=== PATIENT | female | born 1980 | race Caucasian/White ===

== ENCOUNTER 2019-03-17 22:29 | Emergency (ER) | payer MEDICARE, MEDICAID ==
[~2019-03-17] VITALS: Ht 172.7 cm; Wt 99.8 kg
[2019-03-18 00:13] LABS: BASOPHILS % (AUTO) 0 % (0-10); EOSINOPHILS # (AUTO) 0.2 10^3/uL (0.0-0.3); EOSINOPHILS % (AUTO) 3 % (0-10); HEMATOCRIT 43 % (35-52); HEMOGLOBIN 14.3 G/DL (11.5-16.0); LYMPHOCYTES # (AUTO) 2.4 X 10^3 (1.0-4.0); LYMPHOCYTES % (AUTO) 27 % (12-44); MEAN CORPUSCULAR HEMOGLOBIN 31 PG (25-34); MEAN CORPUSCULAR HGB CONC 34 G/DL (32-36); MEAN CORPUSCULAR VOLUME 92 FL (80-99); MONOCYTES # (AUTO) 0.7 X 10^3 (0.0-1.0); MONOCYTES % (AUTO) 8 % (0-12); NEUTROPHILS # (AUTO) 5.6 X 10^3 (1.8-7.8); NEUTROPHILS % (AUTO) 63 % (42-75); PLATELET COUNT 224 10^3/uL (130-400); RED CELL DISTRIBUTION WIDTH 13.9 % (10.0-14.5); WHITE BLOOD COUNT 8.9 10^3/uL (4.3-11.0)
[2019-03-18 00:33] LABS: BILIRUBIN,TOTAL 0.2 MG/DL (0.1-1.0); CALCIUM 9.4 MG/DL (8.5-10.1); CREATININE SERUM 1.05 MG/DL (0.60-1.30); POTASSIUM 3.8 MMOL/L (3.6-5.0); TOTAL PROTEIN 6.8 GM/DL (6.4-8.2)
[2019-03-18] MEDS ORDERED: RX-TRAMADOL 50 MG (ULTRAM) TAB PPK#4 PO STA (01:03)
--- NOTE | 2019-03-18 01:03 | ED General ---
General Chief Complaint: General Problems/Pain Stated Complaint: GALLBLADDER SURGERY 7 MO AGO/INCISION INFECTION Source of Information: Patient Exam Limitations: No Limitations History of Present Illness Date Seen by Provider: March 18, 2019 Time Seen by Provider: 23:35 Initial Comments This 39-year-old woman presents to the emergency room with postoperative pain around her umbilical incision after having a cholecystectomy February 08. Her surgeon is Dr. Chong at [facility]. She reports being seen in his clinic, her nurse practitioner's office, and in the ER at [facility] since having surgery due to pain, erythema, and drainage around the umbilical site. She is presently on her second or third day of Bactrim as well as Bactroban ointment. reports a day or 2 ago the incision drained purulent material. Patient is afebrile. She states she has been on multiple rounds of antibiotics since her surgery. 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 Allergies and Home Medications Allergies Coded Allergies: No Known Drug Allergies (Unverified , 03/17/19) Home Medications Tramadol HCl 50 Mg Tablet, 50 MG PO Q6H PRN for PAIN-MODERATE TO SEVERE Prescribed by: JASON ULRICH on 03/18/19 0106 Patient Home Medication List Home Medication List Reviewed: Yes Review of Systems Review of Systems Constitutional: no symptoms reported EENTM: no symptoms reported Respiratory: no symptoms reported Cardiovascular: no symptoms reported Gastrointestinal: see HPI Genitourinary: no symptoms reported Musculoskeletal: no symptoms reported Skin: see HPI Psychiatric/Neurological: No Symptoms Reported Hematologic/Lymphatic: No Symptoms Reported Immunological/Allergic: no symptoms reported Past Qdkevkv-Aristx-Wqbmjw Hx Past Med/Social Hx: Reviewed and Corrections made Patient Social History Recent Foreign Travel: No Contact w/Someone Who Travel: No Past Medical History Surgeries: Yes Abdominal (D&C), Gallbladder, Hysterectomy Respiratory: Yes Cardiac: No Neurological: No : No Reproductive Disorders: No Gastrointestinal: No Musculoskeletal: Yes (Upossdb-Ibfxtpysr-Csqdv Syndrome) Endocrine: No HEENT: No Cancer: No Psychosocial: Yes PTSD, Personality Disorder Integumentary: Yes (Kyzwdqt-Qsxwosjid-Fowaw Syndrome) Blood Disorders: Yes (Qvvjlqt-Ihmphwehw-Bwupu Syndrome) Physical Exam-Suspected Sepsis Physical Exam Vital Signs Vital Signs - First Documented 03/17/19 03/18/19 23:06 01:11 Temp 98.4 Pulse 98 Resp 20 B/P (MAP) 120/74 (89) Pulse Ox 93 Capillary Refill : Height, Weight, BMI Height: '" Weight: lbs. oz. kg; BMI Method: General Appearance: No Apparent Distress, WD/WN HEENT: PERRL/EOMI, Normal ENT Inspection Neck: Normal Inspection Respiratory: Lungs Clear, Normal Breath Sounds, No Accessory Muscle Use Cardiovascular: Regular Rate, Rhythm, No Edema, No Murmur Gastrointestinal: Soft; No Distended; Other (periumbilical tenderness) Extremity: Normal Capillary Refill, Normal Inspection Neurologic/Psychiatric: Alert, Oriented x3, No Motor/Sensory Deficits, Normal Mood/Affect, stationary fireman II-XII Norm as Tested Skin: warm/dry, other (blanching erythema extending about 3 cm beyond the umbilical incision. Scabbing over the incision noted. No active drainage. No overt abscess.) Progress/Results/Core Measures Suspected Sepsis SIRS Temperature: Pulse: Respiratory Rate: Laboratory Tests 03/18/19 00:06: White Blood Count 8.9 Blood Pressure / Mean: Laboratory Tests 03/18/19 00:06: Creatinine 1.05, Platelet Count 224, Total Bilirubin 0.2 Results/Orders Lab Results My Orders Vital Signs/I&O Capillary Refill : Progress Note : Progress Note Labs were relatively unremarkable. Patient is presently on appropriate antibiotics. She displays no signs of sepsis. She was given a prescription for Ultram for pain. She was advised to follow-up with her surgeon and inquire about imaging such as ultrasound for further evaluation. Departure Impression Primary Impression: Postoperative pain Disposition: 01 HOME, SELF-CARE Condition: Improved Departure-Patient Inst. Decision time for Depature: 01:03 Referrals: NO,LOCAL PHYSICIAN (PCP/Family) Primary Care Physician Patient Instructions: Postoperative Pain (DC) Add. Discharge Instructions: You may use Tylenol (acetaminophen) up to 650 mg every 6 hours as needed for pain as well as the Ultram (tramadol) as prescribed. Return to care if your symptoms are worsening or if you develop new symptoms such as fevers over 100. Complete antibiotics as previously prescribed. Call your surgeon's office on Wednesday. If you're not improving, discuss the option of obtaining an ultrasound study to assess for possible abscess. Follow-up in your surgeon's office as soon as possible. All discharge instructions reviewed with patient and/or family. Voiced understanding. Scripts Tramadol HCl (Ultram) 50 Mg Tablet 50 MG PO Q6H PRN for PAIN-MODERATE TO SEVERE, #10 TAB Prov: JASON VENEGAS MD 03/18/19 JASON VENEGAS MD March 18, 2019 01:03
[2019-03-18] MEDS ORDERED: TRAM-42 PO (01:06)
[2019-03-18 01:11] VITALS: BP 97/67
== END 2019-03-18 01:12 | disposition home or self-care (01) ==
LOC: ER 22:32
DX: G89.18 Other acute postprocedural pain (principal); R10.33 Periumbilical pain; Q87.2 Congenital malformation syndromes predominantly involving limbs; F43.10 Post-traumatic stress disorder, unspecified; F60.0 Paranoid personality disorder; Z90.49 Acquired absence of other specified parts of digestive tract; Z98.890 Other specified postprocedural states
CPT/HCPCS: 36415; 80053; 85025; 86141

== ENCOUNTER 2021-06-05 15:58 | Emergency (ER) | payer MEDICARE, MEDICAID ==
[~2021-06-05] VITALS: Ht 172.7 cm; Wt 98.0 kg
[~2021-06-05 15:58] MED LIST: TRAM-42 PO
[2021-06-05 16:30] LABS: BILIRUBIN,URINE NEGATIVE (NEGATIVE); CLARITY,URINE SL CLOUDY; COLOR,URINE YELLOW; GLUCOSE, URINE (UA) NEGATIVE (NEGATIVE); KETONES,URINE NEGATIVE (NEGATIVE); LEUKOCYTE ESTERASE ,URINE NEGATIVE (NEGATIVE); NITRITE,URINE NEGATIVE (NEGATIVE); PH,URINE 5.5 (5-9); PROTEIN,URINE NEGATIVE (NEGATIVE)
[2021-06-05] MEDS ORDERED: KETOROLAC 60 MG/2 ML VIAL IM ONE (16:30)
[2021-06-05 16:46] LABS: AMORPHOUS SEDIMENT,UR RARE AMOR URATES /LPF; BACTERIA,URINE TRACE /HPF; HCG,QUALITATIVE URINE NEGATIVE (NEGATIVE); WBC,URINE 0-2 /HPF
--- NOTE | 2021-06-05 16:46 | ED Back Pain ---
General Chief Complaint: Back Problems Stated Complaint: BACK PAIN Nursing Triage Note: Patient ambulatory into ER with complaint of back pain x3 weeks. Pt denies injury. Pain at a 10/10. Source of Information: Patient Exam Limitations: No Limitations History of Present Illness Date Seen by Provider: Jun 05, 2021 Time Seen by Provider: 16:44 Initial Comments ER with right-sided back pain for 3 weeks. No known injury. Pain is 10 out of 10 despite her tramadol, Flexeril, gabapentin. No urinary symptoms. No fevers no chills. No loss of bowel or bladder control. No loss of sensation of her genitals. No history of cancer. Location: Lumbar Spine Timing/Duration: Other (3 weeks) Severity: Moderate Associated Symptoms: denies symptoms Allergies and Home Medications Allergies Coded Allergies: No Known Drug Allergies (Unverified , 03/17/19) Home Medications Tramadol HCl 50 Mg Tablet, 50 MG PO Q6H PRN for PAIN-MODERATE TO SEVERE Prescribed by: JASON ULRICH on 03/18/19 0106 Patient Home Medication List Home Medication List Reviewed: Yes Review of Systems Constitutional: see HPI EENTM: see HPI Respiratory: no symptoms reported Cardiovascular: no symptoms reported Genitourinary: no symptoms reported Musculoskeletal: see HPI, back pain Skin: no symptoms reported Psychiatric/Neurological: No Symptoms Reported Past Uewklrd-Vyjxit-Ejeoem Hx Patient Social History Tobacco Use?: Yes Tobacco type used: Cigarettes Use of E-Cig and/or Vaping dev: No Substance use?: Yes Substance type: Marijuana Alcohol Use?: No Pt feels they are or have been: No Immunizations Up To Date Influenza Vaccine Up-to-Date: No; Not Current Seasonal Allergies Seasonal Allergies: No Past Medical History Surgeries: Yes Abdominal, Gallbladder, Hysterectomy Respiratory: Yes COPD Cardiac: No High Cholesterol Neurological: No Reproductive Disorders: No Genitourinary: No Gastrointestinal: No Gastroesophageal Reflux Musculoskeletal: Yes (Ythzmvc-Cprcfsmha-Jwmei Syndrome) Spasms Endocrine: No Hypothyroidsim HEENT: No Cancer: No Psychosocial: Yes PTSD, Personality Disorder Integumentary: Yes (Gtiaaiq-Alnmyrfbk-Ipmun Syndrome) Blood Disorders: Yes (Edbtfft-Sdxohkrpn-Nyghw Syndrome) Physical Exam Vital Signs Vital Signs - First Documented 06/05/21 16:21 Temp 37.3 Pulse 83 Resp 18 B/P (MAP) 106/71 (83) Pulse Ox 98 O2 Delivery Room Air Capillary Refill : Less Than 3 Seconds Height, Weight, BMI Height: 5'8.00" Weight: 220lbs. oz. 99.169399sb; 32.00 BMI Method:Stated General Appearance: No Apparent Distress, WD/WN, Other ([place] appearing) Neck: Full Range of Motion, Normal Inspection Respiratory: No Accessory Muscle Use, No Respiratory Distress Gastrointestinal: Normal Bowel Sounds, Non Tender, Soft Extremity: Normal Capillary Refill, Normal Inspection Neurologic/Psychiatric: Alert, Oriented x3 Skin: Normal Color, Warm/Dry Progress/Results/Core Measures Results/Orders Lab Results Laboratory Tests Test 06/05/21 16:27 Range/Units Urine Color YELLOW Urine Clarity SL CLOUDY Urine pH 5.5 5-9 Urine Specific [place] 1.025 H 1.016-1.022 Urine Protein NEGATIVE NEGATIVE Urine Glucose (UA) NEGATIVE NEGATIVE Urine Ketones NEGATIVE NEGATIVE Urine Nitrite NEGATIVE NEGATIVE Urine Bilirubin NEGATIVE NEGATIVE Urine Urobilinogen 0.2 < = 1.0 MG/DL Urine Leukocyte Esterase NEGATIVE NEGATIVE Urine RBC (Auto) NEGATIVE NEGATIVE Urine RBC NONE /HPF Urine WBC 0-2 /HPF Urine Crystals PRESENT H /LPF Urine Amorphous Sediment RARE SHANTA URATES H /LPF Urine Bacteria TRACE /HPF Urine Casts NONE /LPF Urine Mucus NEGATIVE /LPF Urine Culture Indicated NO Urine Test NEGATIVE NEGATIVE Urine Opiates Screen NEGATIVE NEGATIVE Urine Oxycodone Screen NEGATIVE NEGATIVE Urine Methadone Screen NEGATIVE NEGATIVE Urine Propoxyphene Screen NEGATIVE NEGATIVE Urine Barbiturates Screen NEGATIVE NEGATIVE Ur Tricyclic Antidepressants Screen NEGATIVE NEGATIVE Urine Phencyclidine Screen NEGATIVE NEGATIVE Urine Amphetamines Screen NEGATIVE NEGATIVE Urine Methamphetamines Screen NEGATIVE NEGATIVE Urine Benzodiazepines Screen POSITIVE H NEGATIVE Urine Cocaine Screen NEGATIVE NEGATIVE Urine Cannabinoids Screen POSITIVE H NEGATIVE My Orders Orders - GUIDO SCHRADER APRN Ua Culture If Indicated (06/05/21 16:22) Drug Screen Stat (Urine) (06/05/21 16:22) Hcg,Qualitative Urine (06/05/21 16:22) Ketorolac Injection (Toradol Injection) (06/05/21 16:30) Medications Given in ED Current Medications Medications Dose Ordered Sig/Isrrael Route Start Time Stop Time Status Last Admin Dose Admin Ketorolac Tromethamine 60 mg ONCE ONCE IM 06/05/21 16:30 06/05/21 16:31 DC 8/5/21 16:38 60 MG Vital Signs/I&O 06/05/21 16:21 Temp 37.3 Pulse 83 Resp 18 B/P (MAP) 106/71 (83) Pulse Ox 98 O2 Delivery Room Air Blood Pressure Mean: 83 Departure Impression Primary Impression: Acute low back pain Disposition: HOME, SELF-CARE Condition: Stable Departure-Patient Inst. Decision time for Depature: 17:09 Referrals: ADELE BANDA MD (PCP/Family) Primary Care Physician Patient Instructions: Low Back Pain ED Add. Discharge Instructions: Follow up with primary care for reevaluation. Steroids as directed. All discharge instructions reviewed with patient and/or family. Voiced understanding. Scripts Prednisone (Prednisone) 20 Mg Tab 40 MG PO DAILY, #8 TAB 0 Refills Prov: GUIDO SCHRADER APRN 06/05/21 GUIDO SCHRADER APRN Jun 05, 2021 16:46
[2021-06-05 17:00] LABS: AMPHETAMINE SCREEN, URINE NEGATIVE (NEGATIVE); BARBITURATE SCREEN URINE NEGATIVE (NEGATIVE); BENZODIAZEPINES SCREEN URINE POSITIVE (NEGATIVE); CANNABINOID SCREEN, URINE POSITIVE (NEGATIVE); COCAINE SCREEN URINE NEGATIVE (NEGATIVE); METHADONE STAT NEGATIVE (NEGATIVE); METHAMPHETAMINE SCREEN URINE S NEGATIVE (NEGATIVE); OPIATE SCREEN URINE NEGATIVE (NEGATIVE); OXYCODONE STAT NEGATIVE (NEGATIVE); PROPOXYPHENE STAT NEGATIVE (NEGATIVE); TRICYCLIC ANTIDEPRESSANTS SCRE NEGATIVE (NEGATIVE)
[2021-06-05] MEDS ORDERED: PRD20T PO (17:10)
[2021-06-05 18:53] VITALS: BP 113/74
== END 2021-06-05 17:18 | disposition home or self-care (01) ==
LOC: EDUNIT# 15:58 → ER 15:59
DX: M54.5 Low back pain (principal); J44.9 Chronic obstructive pulmonary disease, unspecified
CPT/HCPCS: 80306; 81000; 84703; 96372; 99284

== ENCOUNTER 2022-02-28 01:46 | Emergency (ER) | payer MEDICARE, MEDICAID ==
[~2022-02-28] VITALS: Ht 173 cm; Wt 83.1 kg
[~2022-02-28 01:46] MED LIST changes: +PRD20T PO
--- NOTE | 2022-02-28 03:14 | ED Lower Extremity ---
General Chief Complaint: Lower Extremity Stated Complaint: POSS BLOOD CLOTT IN LEFT LEG Nursing Triage Note: c/o left medial/posterior pain from groin to knee x2 days, worse tonight. reports hx of dvt. stopped taking blood thinners x3 weeks. Source: patient Exam Limitations: no limitations History of Present Illness Date Seen by Provider: Feb 28, 2022 Time Seen by Provider: 02:42 Initial Comments Patient to the ER by private conveyance with her significant other and chief complaint for the past 1 to 2 days she has been having some increased swelling and pain in her left groin down to her left knee. She has a history of multiple blood clots in the past. She used to be on Xarelto until about 3 weeks ago when she ran out. She went to her doctor who insisted that she continue her Xarelto and sent a prescription in but she just has not got around filling it because she did not feel like she needed it. She has decided now she think she has a blood clot and needs her blood thinner again. She did take 800 mg of ibuprofen tonight with no relief of her pain. No dysuria diarrhea fevers chills or cough. No trauma. 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 She does smoke, uses vaporizers and cannabis but denies any IV drug use. Allergies and Home Medications Allergies Coded Allergies: No Known Drug Allergies (Unverified , 03/17/19) Patient Home Medication List Home Medication List Reviewed: Yes Prednisone (Prednisone) 20 Mg Tab, 40 MG PO DAILY Prescribed by: GUIDO SCHRADER on 06/05/21 1710 Tramadol HCl (Ultram) 50 Mg Tablet, 50 MG PO Q6H PRN for PAIN-MODERATE TO SEVERE Prescribed by: JASON ULRICH on 03/18/19 0106 Review of Systems Constitutional: No chills, No fever EENTM: No ear discharge, No ear pain Respiratory: No cough, No phlegm Cardiovascular: No chest pain, No edema Gastrointestinal: No abdominal pain, No nausea, No vomiting Genitourinary: No discharge, No dysuria Musculoskeletal: see HPI; No back pain; muscle pain Skin: see HPI, change in color; No lesions, No pruritus All Other Systems Reviewed Negative Unless Noted: Yes Past Fznstgn-Kzwgpk-Iojegy Hx Patient Social History Tobacco Use?: Yes Substance use?: Yes Substance type: Marijuana Alcohol Use?: No Pt feels they are or have been: No Seasonal Allergies Seasonal Allergies: No Past Medical History Surgery/Hospitalization HX: komal, hysterectomy, copd, high cholesterol, gerd, aseidln-xlbilhncr-rsggz syndrome, hypothryoidism, ptsd, personality disorder, pe Surgeries: Yes Abdominal, Gallbladder, Hysterectomy Respiratory: Yes COPD Cardiac: No High Cholesterol Neurological: No Reproductive Disorders: No Genitourinary: No Gastrointestinal: No Gastroesophageal Reflux Musculoskeletal: Yes (Dckkqgi-Fumhabwjn-Smviv Syndrome) Spasms Endocrine: No Hypothyroidsim HEENT: No Cancer: No Psychosocial: Yes PTSD, Personality Disorder Integumentary: Yes (Imouwip-Pmsqjezqk-Iwxer Syndrome) Blood Disorders: Yes (Ttzqolk-Qwdsbfsag-Susnc Syndrome) Physical Exam Vital Signs Vital Signs - First Documented 02/28/22 02:03 Temp 36.8 Pulse 87 Resp 18 B/P (MAP) 128/78 (95) Pulse Ox 96 O2 Delivery Room Air Capillary Refill : Less Than 3 Seconds Height, Weight, BMI Height: 5'8.00" Weight: 220lbs. oz. 99.930072fp; 27.00 BMI Method:Stated General Appearance: WD/WN, mild distress HEENT: PERRL/EOMI, pharynx normal Neck: full range of motion, normal inspection Cardiovascular: normal peripheral pulses, regular rate, rhythm Respiratory: no respiratory distress, no accessory muscle use Gastrointestinal: non tender, soft Neurologic/Tendon: normal sensation, normal motor functions Neurologic/Psychiatric: alert, normal mood/affect, oriented x 3 Progress/Results/Core Measures Results/Orders Vital Signs/I&O 02/28/22 02:03 Temp 36.8 Pulse 87 Resp 18 B/P (MAP) 128/78 (95) Pulse Ox 96 O2 Delivery Room Air Blood Pressure Mean: 95 Progress Progress Note : Time: 03:13 Progress Note Lovenox 80 mg SQ now, outpatient ultrasound, hydrocodone for her pain. 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 She is okay with this plan. Departure Impression Primary Impression: DVT (deep venous thrombosis) Qualified Codes: I82.4Z2 - Acute embolism and thrombosis of unspecified deep veins of left distal lower extremity Disposition: 01 HOME, SELF-CARE Condition: Stable Departure-Patient Inst. Decision time for Depature: 03:15 Referrals: ADELE BANDA MD (PCP/Family) Primary Care Physician Patient Instructions: Going Home on Blood Thinners , Deep Vein Thrombosis (DVT) ED Add. Discharge Instructions: litigation support analyst your Xarelto and resume taking it today. Avoid NSAIDs such as ibuprofen or Aleve as this will reduce the effectiveness of Xarelto. Tylenol 1000 mg every 8 hours as needed for pain. Topical creams and heat. Hydrocodone 1 tablet every 6 hours as needed for severe breakthrough pain. Hydrocodone will cause drowsiness as well as constipation. Call the number for scheduling on the top of your order sheet to set up an ultrasound. The ultrasound will be forwarded to the ER physician for review and you should have results that day. Promptly return to the nearest ER if you begin to experience chest pain, shortness of air or other worrisome symptoms. All discharge instructions reviewed with patient and/or family. Voiced understanding. Scripts Hydrocodone/Acetaminophen (Hydrocodone-Acetamin 5-325 mg) 5 Mg-325 Mg Tablet 1 TAB PO Q6H PRN for PAIN-MODERATE (5-7), #15 TAB 0 Refills Prov: TENZIN OSCAR 02/28/22 Work/School Note: Work Release Form Date Seen in the Emergency Department: Feb 28, 2022 Return to Work: March 04, 2022 Restrictions: No Restrictions TENZIN OSCAR Feb 28, 2022 03:14
[2022-02-28] MEDS ORDERED: HYDROcodone/APAP 5 MG/325 MG (LORTAB) TAB PO ONE (03:15)
[2022-02-28] MEDS ORDERED: ENOXAPARIN 80 MG/0.8 ML (LOVENOX) SYR SC ONE (03:15)
[2022-02-28] MEDS ORDERED: ACHD5005 PO (03:21)
[2022-02-28 03:27] VITALS: BP 102/68
== END 2022-02-28 03:34 | disposition home or self-care (01) ==
LOC: EDUNIT# 01:46 → ER 01:50
DX: I82.4Z2 Acute embolism and thrombosis of unspecified deep veins of left distal lower extremity (principal); F17.290 Nicotine dependence, other tobacco product, uncomplicated; Z86.718 Personal history of other venous thrombosis and embolism; Z91.14 Patient's other noncompliance with medication regimen
CPT/HCPCS: 99284